=== PATIENT | female | born 1970 | race Caucasian/White ===

== ENCOUNTER 2017-02-26 08:40 | Outpatient (CLI) | payer BC | END 2017-02-26 19:45 | disposition home or self-care (01) | LOC: SMA 08:40 | PROVIDERS: ATTEND Family Medicine | DX: Z12.31 Encounter for screening mammogram for malignant neoplasm of breast (principal); Z98.82 Breast implant status | CPT/HCPCS: 77067; G0202 ==

== ENCOUNTER 2018-03-06 08:43 | Outpatient (CLI) | payer BC | END 2018-03-06 19:02 | disposition home or self-care (01) | LOC: SMA 08:43 | PROVIDERS: ATTEND Family Medicine | DX: Z12.31 Encounter for screening mammogram for malignant neoplasm of breast (principal); Z98.82 Breast implant status | CPT/HCPCS: 77067 ==

== ENCOUNTER 2019-03-08 09:19 | Outpatient (CLI) | payer BC | END 2019-03-09 21:21 | disposition home or self-care (01) | LOC: SMA 09:19 | PROVIDERS: ATTEND Family Medicine | DX: Z12.31 Encounter for screening mammogram for malignant neoplasm of breast (principal); R92.1 Mammographic calcification found on diagnostic imaging of breast | CPT/HCPCS: 76641; 77067 ==